=== PATIENT | female | born 1950 | race Caucasian/White ===

== ENCOUNTER → 2017-03-27 | Outpatient (CLI) | payer MEDICARE, OTHER | LOC: MHCPAIN 08:50 | DX: G89.29 Other chronic pain (principal); M47.817 Spondylosis without myelopathy or radiculopathy, lumbosacral region; M53.3 Sacrococcygeal disorders, not elsewhere classified | CPT/HCPCS: G0463 ==

== ENCOUNTER → 2017-04-25 | Outpatient (CLI) | payer MEDICARE, OTHER | LOC: MHCPAIN 10:04 | DX: M47.817 Spondylosis without myelopathy or radiculopathy, lumbosacral region (principal); Z79.01 Long term (current) use of anticoagulants | CPT/HCPCS: J1040; Q9967 ==

== ENCOUNTER → 2017-05-10 | Outpatient (CLI) | payer MEDICARE, OTHER | LOC: MHCPAIN 12:20 | DX: G89.29 Other chronic pain (principal); M47.817 Spondylosis without myelopathy or radiculopathy, lumbosacral region; M53.3 Sacrococcygeal disorders, not elsewhere classified; E66.9 Obesity, unspecified; Z79.01 Long term (current) use of anticoagulants; Z87.891 Personal history of nicotine dependence; Z79.82 Long term (current) use of aspirin | CPT/HCPCS: G0463 ==

== ENCOUNTER → 2017-08-12 | Outpatient (CLI) | payer MEDICARE, OTHER | LOC: MHCPAIN 13:28 | DX: G89.29 Other chronic pain (principal); M47.817 Spondylosis without myelopathy or radiculopathy, lumbosacral region; M53.3 Sacrococcygeal disorders, not elsewhere classified; M16.11 Unilateral primary osteoarthritis, right hip; Z87.891 Personal history of nicotine dependence | CPT/HCPCS: G0463 ==

== ENCOUNTER → 2017-09-12 | Outpatient (CLI) | payer MEDICARE, OTHER | LOC: MHCPAIN 10:28 | DX: M47.817 Spondylosis without myelopathy or radiculopathy, lumbosacral region (principal); M16.11 Unilateral primary osteoarthritis, right hip | CPT/HCPCS: J1040; Q9967 ==

== ENCOUNTER → 2017-12-09 | Outpatient (CLI) | payer MEDICARE, OTHER | LOC: MHCPAIN 12:47 | DX: G89.29 Other chronic pain (principal); M47.817 Spondylosis without myelopathy or radiculopathy, lumbosacral region; M53.3 Sacrococcygeal disorders, not elsewhere classified; M16.11 Unilateral primary osteoarthritis, right hip; Z87.891 Personal history of nicotine dependence | CPT/HCPCS: G0463 ==

== ENCOUNTER → 2017-12-19 | Outpatient (CLI) | payer MEDICARE, OTHER ==
[~2017-12-19] MED LIST: ASPIRIN 81M81 MG/TA2 PO; CARDIZEM CD 12120 MG PO; COUMADIN 6MG6 MG/TAB PO; FISH OIL 500 M1 EAC1 PO; FLEXERIL 1010 MG/TAB PO; GLUCOTROL 5M5 MG/TAB PO; IBU800 M1 PO; JANUVIA 100MG100 MG PO; LIPITOR 40MG TA40 MG PO; MAGNESIUM CITR100 MG PO; MAXZIDE 50 MG-71 TAB PO; PERCOCET 325 MG1 TAB PO; SYNTHROID0.075 MG/T PO; ZESTRIL2.5 MG PO; ZYLOPRIM 100MG100 MG PO
== END ==
LOC: MHCPAIN 10:06
DX: M47.817 Spondylosis without myelopathy or radiculopathy, lumbosacral region (principal); M43.16 Spondylolisthesis, lumbar region

== ENCOUNTER 2017-12-30 06:56 | Day surgery (SDC) | payer MEDICARE, OTHER ==
[~2017-12-30] VITALS: Ht 170.2 cm; Wt 106.4 kg
[2017-12-30] MEDS ORDERED: ZYLOPRIM 100MG100 MG PO (07:23)
[2017-12-30] MEDS ORDERED: ASPIRIN 81M81 MG/TA2 PO (07:24)
[2017-12-30] MEDS ORDERED: LIPITOR 40MG TA40 MG PO (07:24)
[2017-12-30] MEDS ORDERED: FLEXERIL 1010 MG/TAB PO (07:25)
[2017-12-30] MEDS ORDERED: COUMADIN 6MG6 MG/TAB PO (07:25)
[2017-12-30] MEDS ORDERED: CARDIZEM CD 12120 MG PO (07:26)
[2017-12-30] MEDS ORDERED: FISH OIL 500 M1 EAC1 PO (07:26)
[2017-12-30] MEDS ORDERED: GLUCOTROL 5M5 MG/TAB PO (07:26)
[2017-12-30] MEDS ORDERED: JANUVIA 100MG100 MG PO (07:27)
[2017-12-30] MEDS ORDERED: SYNTHROID0.075 MG/T PO (07:27)
[2017-12-30] MEDS ORDERED: IBU800 M1 PO (07:27)
[2017-12-30] MEDS ORDERED: MAGNESIUM CITR100 MG PO (07:28)
[2017-12-30] MEDS ORDERED: ZESTRIL2.5 MG PO (07:28)
[2017-12-30] MEDS ORDERED: PERCOCET 325 MG1 TAB PO (07:29)
[2017-12-30] MEDS ORDERED: MAXZIDE 50 MG-71 TAB PO (07:29)
[2017-12-30 07:48] VITALS: BP 124/88; PULSE 92; TEMP 98.1
[2017-12-30 08:50] VITALS: BP 99/65; PULSE 95; TEMP 98
[2017-12-30 09:05] VITALS: BP 112/68; PULSE 96
[2017-12-30 09:20] VITALS: BP 120/88; PULSE 93
[2017-12-30 09:35] VITALS: BP 143/95; PULSE 85
== END 2017-12-30 09:55 | disposition home or self-care (01) ==
LOC: SDCO 06:56
DX: K22.70 Barrett's esophagus without dysplasia (principal); K20.9 Esophagitis, unspecified; K29.30 Chronic superficial gastritis without bleeding; R19.7 Diarrhea, unspecified; Z80.0 Family history of malignant neoplasm of digestive organs; Z79.01 Long term (current) use of anticoagulants; Z79.84 Long term (current) use of oral hypoglycemic drugs; I11.0 Hypertensive heart disease with heart failure; I50.9 Heart failure, unspecified; I48.91 Unspecified atrial fibrillation; E11.9 Type 2 diabetes mellitus without complications; E03.9 Hypothyroidism, unspecified; Z87.442 Personal history of urinary calculi; E78.00 Pure hypercholesterolemia, unspecified; J44.9 Chronic obstructive pulmonary disease, unspecified; Z99.81 Dependence on supplemental oxygen; G89.29 Other chronic pain; M54.9 Dorsalgia, unspecified; G47.33 Obstructive sleep apnea (adult) (pediatric); M10.9 Gout, unspecified
CPT/HCPCS: OP; J2405; J2704; J7030

== ENCOUNTER → 2018-01-23 | Outpatient (CLI) | payer MEDICARE, OTHER | LOC: MHCPAIN 13:47 | DX: M47.817 Spondylosis without myelopathy or radiculopathy, lumbosacral region (principal); M43.16 Spondylolisthesis, lumbar region | CPT/HCPCS: J2250; J2405; J3010 ==

== ENCOUNTER → 2018-02-19 | Outpatient (CLI) | payer MEDICARE, OTHER | LOC: MHCPAIN 08:58 | DX: M47.817 Spondylosis without myelopathy or radiculopathy, lumbosacral region (principal); M43.16 Spondylolisthesis, lumbar region; M46.96 Unspecified inflammatory spondylopathy, lumbar region | CPT/HCPCS: J2250; J3010 ==

== ENCOUNTER → 2018-03-11 | Outpatient (CLI) | payer MEDICARE, OTHER | LOC: MHCPAIN 10:10 | DX: G89.29 Other chronic pain (principal); M47.817 Spondylosis without myelopathy or radiculopathy, lumbosacral region; M54.16 Radiculopathy, lumbar region; M53.3 Sacrococcygeal disorders, not elsewhere classified; M16.0 Bilateral primary osteoarthritis of hip | CPT/HCPCS: G0463 ==

== ENCOUNTER → 2018-03-17 | Outpatient (CLI) | payer MEDICARE, OTHER | LOC: MHCPAIN 12:43 | DX: M16.11 Unilateral primary osteoarthritis, right hip (principal) | CPT/HCPCS: J1040; Q9967 ==

== ENCOUNTER → 2018-06-16 | Outpatient (CLI) | payer MEDICARE, OTHER | LOC: MHCPAIN 10:25 | DX: G89.29 Other chronic pain (principal); M47.817 Spondylosis without myelopathy or radiculopathy, lumbosacral region; M54.16 Radiculopathy, lumbar region; M53.3 Sacrococcygeal disorders, not elsewhere classified | CPT/HCPCS: G0463 ==

== ENCOUNTER → 2018-07-31 | Outpatient (CLI) | payer MEDICARE, OTHER | LOC: MHCPAIN 07:47 | DX: M47.817 Spondylosis without myelopathy or radiculopathy, lumbosacral region (principal); M54.16 Radiculopathy, lumbar region ==

== ENCOUNTER → 2018-08-14 | Outpatient (CLI) | payer MEDICARE, OTHER | LOC: MHCPAIN 10:04 | DX: M47.817 Spondylosis without myelopathy or radiculopathy, lumbosacral region (principal); M54.16 Radiculopathy, lumbar region | CPT/HCPCS: J2250; J3010 ==

== ENCOUNTER → 2018-08-18 | Outpatient (CLI) | payer MEDICARE, OTHER | LOC: MHCPAIN 10:55 | DX: M47.817 Spondylosis without myelopathy or radiculopathy, lumbosacral region (principal); M54.16 Radiculopathy, lumbar region | CPT/HCPCS: J2250; J3010 ==

== ENCOUNTER 2019-01-07 07:03 | Day surgery (SDC) | payer MEDICARE, OTHER ==
[~2019-01-07] VITALS: Ht 170.3 cm; Wt 107.0 kg
[2019-01-07] VITALS (13 sets, daily range): BP systolic 111–144; BP diastolic 68–90; PULSE 84–108; TEMP 98.2–98.3
[2019-01-07 07:46] LABS: HEMATOCRIT 37.4 % (37.0-47.0); HEMOGLOBIN 11.9 g/dl (12.5-16.0); MEAN CELL VOLUME 94 fl (80.0-100.0); MEAN CORPUSCULAR HEMOGLOBIN 30 pg (27.0-31.0); MEAN CORPUSCULAR HGB CONC 32 g/dl (33.0-37.0); MEAN PLATELET VOLUME 8.8 fl (7.4-10.4); PLATELET COUNT 238 K/mm3 (130-400); RED BLOOD COUNT 3.97 M/mm3 (4.10-5.30); REDCELL DISTRIBUTION WIDTH-CV 14.5 % (11.5-14.5)
[2019-01-07 07:55] LABS: INR 1.1 (0.8-3.0)
[2019-01-07] MEDS ORDERED: COLACE 100100 MG/CAP PO (07:57)
[2019-01-07] MEDS ORDERED: MASON NATURAL1200 MG PO (07:58)
[2019-01-07] MEDS ORDERED: MAG-OX 400400 MG/TAB PO (08:04)
[2019-01-07 08:05] LABS: CALCIUM 9.4 mg/dL (8.4-10.2); CREATININE, serum 0.71 (0.52-1.25)
[2019-01-07] MEDS ORDERED: AMBIEN 10MG10 MG PO (08:07)
--- NOTE | 2019-01-07 09:34 | NUR ---
ALL MEDICATIONS GIVEN VORB WITH MD. SEE MERGE FOR MEDICATION ADMIN TIMES. SEE MERGE FOR ALL RASS ASSESSMENTS DURING AND POST PROCEDURE. POSITIVE BARBEAU'S TEST IN THE RIGHT WRIST.
--- NOTE | 2019-01-07 10:15 | NUR ---
Pt returned to EU 12 per bed s/p heart cath. Pt resting well, family at bedside.
--- NOTE | 2019-01-07 14:00 | NUR ---
Pt has ambulated, voided and daiana PO intake s n/v. R Radial compression band removed and covered with bandaid and gauze and wrapped with coban. R wrist site remains soft, C/D/I. PIV removed with catheter intact.
--- NOTE | 2019-01-07 14:25 | NUR ---
Pt discharged per w/c by nurse with .
== END 2019-01-07 16:48 | disposition home or self-care (01) ==
LOC: COL.CAR 07:03
PROVIDERS: Internal Medicine Cardiovascular Disease
DX: R94.39 Abnormal result of other cardiovascular function study (principal); I99.8 Other disorder of circulatory system; G47.33 Obstructive sleep apnea (adult) (pediatric); J44.9 Chronic obstructive pulmonary disease, unspecified; Z99.81 Dependence on supplemental oxygen; E11.9 Type 2 diabetes mellitus without complications; I10 Essential (primary) hypertension; I38 Endocarditis, valve unspecified; Z87.891 Personal history of nicotine dependence; I48.2 Chronic atrial fibrillation; Z88.5 Allergy status to narcotic agent; Z88.8 Allergy status to other drugs, medicaments and biological substances; Z79.82 Long term (current) use of aspirin; Z79.84 Long term (current) use of oral hypoglycemic drugs; E78.2 Mixed hyperlipidemia; Z79.01 Long term (current) use of anticoagulants
CPT/HCPCS: C1769; J1644; J2250; J3010; Q9967

== ENCOUNTER 2019-02-05 10:26 | Inpatient (IN) | payer MEDICARE, OTHER ==
[~2019-02-05] VITALS: Ht 170.2 cm; Wt 107.1 kg
[~2019-02-05 10:26] MED LIST changes: +AMBIEN 10MG10 MG PO; +COLACE 100100 MG/CAP PO; +MAG-OX 400400 MG/TAB PO; +MASON NATURAL1200 MG PO
[2019-03-11] VITALS (12 sets, daily range): BP systolic 96–114; BP diastolic 46–67; PULSE 75–106; TEMP 97.8–98.4
[2019-03-11] MEDS ORDERED: VENTOLIN0.09 MG IH (05:29)
[2019-03-11 06:07] LABS: PROTHROMBIN TIME 12.2 SECONDS (9.7-12.8)
[2019-03-11] MEDS ORDERED: MIRALAX PA17 GM/Dose PO (06:23)
[2019-03-11] MEDS ORDERED: PEPCID 20MG TAB20 MG PO (06:23)
--- NOTE | 2019-03-11 08:50 | NUR ---
returned to room from PACU per bed, awake and alert but sleepy, IV infusing and placed on pump at 125ml/hr, O2 on at 2L/NC which sheis on at home and O2 sat 96%, JADEN benjamin and SCDs on bilaterally, has sensation to left foot and is able to move but sensation on the right is at mid thigh and unable to move, takes sips of water and tolerates well, at bedside
--- NOTE | 2019-03-11 10:15 | NUR ---
full assessment completed, see interventions for further info
--- NOTE | 2019-03-11 10:16 | NUR ---
ambulated with very slow but steady gait out to [place] with physical therapy, then into recliner, occupational therapy now in to visit with patient, family at bedside
--- NOTE | 2019-03-11 11:00 | NUR ---
sleeping between checks, arouses easily
--- NOTE | 2019-03-11 11:10 | NUR ---
SW met with patient to discuss discharge planning. patient lives in [place] with her Peng. Patients PCP is Dr Nikole Garcia and she obtains her medications from [facility]. Patient would like to go to [place] [facility] bed at discharge and signed a choice form. Patients DPOA is on EMR. BENITO made referral to [facility] at swing bed. Will continue to follow.
--- NOTE | 2019-03-11 11:30 | NUR ---
awakens easily, has sensation to right foot and is able to now do ankle pump on the right, continues to deny needs
--- NOTE | 2019-03-11 12:03 | NUR ---
Initial visit; Patient thanked Business Account Leader for looking in on her and offering prayer and additional spiritual care. Business Account Leader will continue to look in on her while she is a patient.
--- NOTE | 2019-03-11 12:53 | NUR ---
continues to sleep and deny needs
--- NOTE | 2019-03-11 13:30 | NUR ---
awake now and beginning to feel urge to void, will notify physical therapy to assist and complete eval
--- NOTE | 2019-03-11 14:00 | NUR ---
up to bathroom and voided qs, then out and into recliner, physical therapy working with patient
--- NOTE | 2019-03-11 15:23 | NUR ---
sitting up in chair eat ing lunch, denies needs
--- NOTE | 2019-03-11 16:00 | NUR ---
remains sitting up in chair, states she is having a little pain and just doesn't feel good right now, medicated with scheduled tylenol, will call if pain doesn't get better or if increases
--- NOTE | 2019-03-11 16:45 | NUR ---
appears to be sleeping now, in chair with eyes closed, resp quiet and easy
--- NOTE | 2019-03-11 17:56 | NUR ---
assisted up to bathroom and moves well, denies needs
--- NOTE | 2019-03-11 18:55 | NUR ---
bedside shift report given to SHAHNAZ Lugo
[2019-03-12] VITALS (7 sets, daily range): BP systolic 91–117; BP diastolic 49–71; PULSE 93–111; TEMP 97.5–98.9
--- NOTE | 2019-03-12 03:28 | NUR ---
Patient has rested well throughout this night. Pain well controlled with current regimen. Ambulated to surgical nurses desk and back. Tolerated this well and noted to have steady gait. Utilizes walker and gait belt. Will continue to monitor.
--- NOTE | 2019-03-12 06:35 | NUR ---
appears to be sleeping, in bed with lights off, CPAP on, bedside shift report received from SHAHNAZ Kraus
--- NOTE | 2019-03-12 07:37 | NUR ---
awake and was up to bathroom and now resting in chair, has ordered breakfast, full assessment completed, see interventions for further info,
[2019-03-12 07:48] LABS: HEMOGLOBIN 8.7 g/dl (12.5-16.0)
[2019-03-12 07:51] LABS: INR 1.1 (0.8-3.0); PROTHROMBIN TIME 12.4 SECONDS (9.7-12.8)
--- NOTE | 2019-03-12 09:22 | NUR ---
ambulated out to [place] with physical therapy for group exercises
--- NOTE | 2019-03-12 10:00 | NUR ---
ambulated back to room after therapy, occupational therapy in to visit with patient
--- NOTE | 2019-03-12 11:23 | NUR ---
resting in chair without c/os
--- NOTE | 2019-03-12 12:55 | NUR ---
had lunch and tolerated well, medicate with roxicodone 5mg for c/os pain5/10 and in anticipation of therapy
--- NOTE | 2019-03-12 14:00 | NUR ---
ambulated back to room and remains up in chair, watching TV
--- NOTE | 2019-03-12 15:39 | NUR ---
Faxed update to [facility] bed.
--- NOTE | 2019-03-12 16:00 | NUR ---
sitting up in chair watching TV and looking at phone
--- NOTE | 2019-03-12 18:51 | NUR ---
bedside shift report given to SHAHNAZ Kraus
--- NOTE | 2019-03-13 01:50 | NUR ---
Patient resting well in bed with CPAP on. Aquacell to right hip free from drainage. Patient takes pain medication as needed and has adequate pain relief. Ambulates to bathroom with walker. Ice to right hip. Denies any needs at this time. Will continue to monitor.
[2019-03-13 02:56] VITALS: BP 123/66; PULSE 97; TEMP 98
[2019-03-13 06:50] LABS: HEMATOCRIT 28.2 % (37.0-47.0); HEMOGLOBIN 8.9 g/dl (12.5-16.0)
[2019-03-13 06:53] LABS: PROTHROMBIN TIME 12.1 SECONDS (9.7-12.8)
--- NOTE | 2019-03-13 08:00 | NUR ---
PATIENT IS A&O. VSS. RATES PAIN IN RLE AT 5-6 ON PAIN SCALE. GAVE PRN ROXICODONE, TWO TABS. RTH DRESSING IS CD&I WITH AQUACEL. TEDS TO BLE. POSITIVE PEDAL PULSES TO BLE. PATIENT EAT/DRINK/VOIDING SUFFIENT AMOUNTS. NO C/O N/V. RIGHT FORARM IV TO INT. BREAKFAST TRAY AT BEDSIDE. AM MEDS GIVEN. HEAD TO TOE ASSESSMENT WNL. NO OTHER NEEDS. CALL LIGHT IN REACH.
[2019-03-13 08:19] VITALS: BP 111/65; PULSE 98; TEMP 98
[2019-03-13 12:00] VITALS: BP 108/61; PULSE 96; TEMP 98.2
--- NOTE | 2019-03-13 13:34 | NUR ---
Patient accepted to swing bed. Doc to doc number [id number] (Dr Moses). SW gave information to nurse. Discharge orders need faxed to [phone] and patient will need to be there as early as possible and by noon at the latest.
[2019-03-13 16:25] VITALS: BP 118/59; PULSE 104; TEMP 99.2
[2019-03-13 20:38] VITALS: BP 112/64; PULSE 101; TEMP 97.7
[2019-03-13 23:37] VITALS: BP 123/71; PULSE 97; TEMP 97.9
--- NOTE | 2019-03-14 02:15 | NUR ---
Patient resting well this shift. Pain well controlled. Ambulates with 1 assist from staff. States she is very pleased with her care here. Plans to go to swing bed in the morning. Resting with eyes closed at this time.
[2019-03-14 04:45] VITALS: BP 126/66; PULSE 89; TEMP 97.8
[2019-03-14 08:07] VITALS: BP 92/58; PULSE 87; TEMP 98.2
[2019-03-14 08:43] LABS: HEMATOCRIT 29.8 % (37.0-47.0); HEMOGLOBIN 9.2 g/dl (12.5-16.0)
[2019-03-14 08:47] LABS: INR 1.2 (0.8-3.0); PROTHROMBIN TIME 13.8 SECONDS (9.7-12.8)
--- NOTE | 2019-03-14 09:30 | NUR ---
Patient is discharging today. She is doing well. She let her know she has to be in [place] by noon. He is supposed to be on his way soon. Minimal complaints of pain this am. She is waiting to do therapy to go home. No other changes at this time. Call light within reach.
[2019-03-14 09:42] VITALS: BP 112/58; PULSE 87; TEMP 98.2
--- NOTE | 2019-03-14 10:28 | NUR ---
BENITO met with patient about discharge to [facility] today 03/14 for prison, PT and OT. Patient's is on his way to pick patient up. BENITO presented IM. Patient signed and did not want a copy. BENITO faxed discharge orders.
--- NOTE | 2019-03-14 11:15 | NUR ---
Patient is discharging to swing bed. Report called to [facility]. Discharge info packet sent with patient. All belongings packed up and sent with patient. New aquacel dressing placed to right hip. No drainage to old drainage, incision is well approximated without reddness. No edema noted. Patient is being walked out via wheel chair by Sylvia MCCALL. Patient has her portable oxygen machine with her for her ride to [place].
== END 2019-03-14 11:15 | disposition swing bed (61) | DRG 470 ==
LOC: JCC 03-11 05:30
PROVIDERS: Physician Assistant; ADMIT Orthopaedic Surgery
PROC: 0SR90JZ Replacement of Right Hip Joint with Synthetic Substitute, Open Approach (ICD-10-PCS; principal; 2019-03-11 07:30)
DX: M16.11 Unilateral primary osteoarthritis, right hip (principal); I48.91 Unspecified atrial fibrillation; I50.9 Heart failure, unspecified; J44.9 Chronic obstructive pulmonary disease, unspecified; E11.9 Type 2 diabetes mellitus without complications; E78.00 Pure hypercholesterolemia, unspecified; F32.9 Major depressive disorder, single episode, unspecified; M10.9 Gout, unspecified; I11.0 Hypertensive heart disease with heart failure; G47.33 Obstructive sleep apnea (adult) (pediatric); K21.9 Gastro-esophageal reflux disease without esophagitis; G89.29 Other chronic pain; M54.9 Dorsalgia, unspecified; Z79.82 Long term (current) use of aspirin; Z99.81 Dependence on supplemental oxygen; Z79.01 Long term (current) use of anticoagulants; Z87.891 Personal history of nicotine dependence; Z90.710 Acquired absence of both cervix and uterus
CPT/HCPCS: A4216; A9284; C1713; C1776; J0690; J1100; J1885; J2250; J2405; J2704; J3010; J7030; J7120

== ENCOUNTER → 2019-06-23 | Outpatient (CLI) | payer MEDICARE, OTHER ==
[~2019-06-23] MED LIST changes: +MIRALAX PA17 GM/Dose PO; +PEPCID 20MG TAB20 MG PO; +VENTOLIN0.09 MG IH
== END ==
LOC: MHCPAIN 14:38
DX: G89.29 Other chronic pain (principal); M47.817 Spondylosis without myelopathy or radiculopathy, lumbosacral region; M53.3 Sacrococcygeal disorders, not elsewhere classified
CPT/HCPCS: G0463

== ENCOUNTER → 2019-07-09 | Outpatient (CLI) | payer MEDICARE, OTHER | LOC: MHCPAIN 09:50 | DX: M47.817 Spondylosis without myelopathy or radiculopathy, lumbosacral region (principal); M54.16 Radiculopathy, lumbar region ==

== ENCOUNTER → 2019-08-03 | Outpatient (CLI) | payer MEDICARE, OTHER | LOC: MHCPAIN 10:49 | DX: M54.5 Low back pain (principal) | CPT/HCPCS: J2250; J3010 ==

== ENCOUNTER → 2019-08-06 | Outpatient (CLI) | payer MEDICARE, OTHER | LOC: MHCPAIN 11:34 | DX: M54.5 Low back pain (principal) | CPT/HCPCS: J2250; J3010 ==

== ENCOUNTER → 2019-10-06 | Outpatient (CLI) | payer MEDICARE, OTHER | LOC: MHCPAIN 10:57 | DX: M47.817 Spondylosis without myelopathy or radiculopathy, lumbosacral region (principal); M53.3 Sacrococcygeal disorders, not elsewhere classified | CPT/HCPCS: G0463 ==

== ENCOUNTER 2021-09-08 09:55 | Day surgery (SDC) | payer MEDICARE, OTHER ==
[~2021-09-08] VITALS: Ht 170.2 cm; Wt 115.0 kg
[2021-09-08] MEDS ORDERED: COUMADIN 6MG6 MG/TAB PO (10:11)
[2021-09-08] MEDS ORDERED: Coumadin PO (10:12)
[2021-09-08] MEDS ORDERED: EPA FISH OIL1 SGL PO (10:13)
[2021-09-08] MEDS ORDERED: DYRENIUM 50MG C50 MG PO (10:16)
[2021-09-08] MEDS ORDERED: CALAN120 MG PO (10:17)
[2021-09-08] MEDS ORDERED: AMBIEN 10MG10 MG PO (10:18)
[2021-09-08 10:57] VITALS: BP 112/70; PULSE 90; TEMP 98.8
[2021-09-08 11:35] VITALS: BP 101/73; PULSE 85; TEMP 98
--- NOTE | 2021-09-08 11:35 | NUR ---
Patient arrived back into [facility]. States she feels nausea, emesis bag given. Patient is alert and awake. at bedside. Report received from SHAHNAZ Zaman. Patient requesting orange juice and delisa crackers. Patient developed nose bleed that last approximently 5 minutes with a small amount of blood. Patient states she gets these frequently due to being on continuous oxygen.
[2021-09-08 11:50] VITALS: BP 115/74; PULSE 91
--- NOTE | 2021-09-08 11:50 | NUR ---
Patient states she is doing well. Tolerated food and drink. No complaint of nausea or pain. No additonal nose bleeds. at bedside.
[2021-09-08 12:05] VITALS: BP 122/75; PULSE 95
--- NOTE | 2021-09-08 12:15 | NUR ---
in to see patient.
--- NOTE | 2021-09-08 12:20 | NUR ---
Went through discharge instructions with patient and . Questions answered. Patient and verbalized understanding to education. IV removed with no complications. Assisted patient in getting dressed and patient switched to personal portable oxygen device.
--- NOTE | 2021-09-08 12:30 | NUR ---
Patient escorted to patient entrance via wheelchair by alex Jenkins. along side. Patient left in the care of her .
== END 2021-09-08 12:30 | disposition home or self-care (01) ==
LOC: SDCO 09:55
DX: K21.9 Gastro-esophageal reflux disease without esophagitis (principal); K29.30 Chronic superficial gastritis without bleeding; R19.7 Diarrhea, unspecified; K59.00 Constipation, unspecified; D12.3 Benign neoplasm of transverse colon; I11.0 Hypertensive heart disease with heart failure; I50.9 Heart failure, unspecified; I48.91 Unspecified atrial fibrillation; E13.8 Other specified diabetes mellitus with unspecified complications; E78.5 Hyperlipidemia, unspecified; J44.9 Chronic obstructive pulmonary disease, unspecified; G47.33 Obstructive sleep apnea (adult) (pediatric); Z79.890 Hormone replacement therapy; Z79.899 Other long term (current) drug therapy; Z87.891 Personal history of nicotine dependence; Z79.84 Long term (current) use of oral hypoglycemic drugs; Z99.89 Dependence on other enabling machines and devices; Z85.3 Personal history of malignant neoplasm of breast; Z90.49 Acquired absence of other specified parts of digestive tract; Z90.710 Acquired absence of both cervix and uterus
CPT/HCPCS: J2704; J7030

== ENCOUNTER 2023-11-05 19:50 | Inpatient (IN) | payer MEDICARE, OTHER ==
[~2023-11-05] VITALS: Ht 167.6 cm; Wt 94.7 kg
[~2023-11-05 19:50] MED LIST changes: +COUMADIN4 MG PO; +Coumadin PO; +DYRENIUM 50MG C50 MG PO; +EPA FISH OIL1 SGL PO; +GLUCOPHAGE500 MG/TAB PO; +ISOPTIN SR120 MG PO; +MAXZIDE 50 MG-71 TAB; +PERCOCET 325 MG1 TA2 PO
[2023-11-05 20:20] LABS: BASO # 0.1 K/mm3 (0.0-0.2); BASO % 0.6 % (0.0-2.0); EOS # 0.4 K/mm3 (0.0-0.7); EOS % 4.8 % (0.0-4.0); GRAN # 5.1 K/mm3 (1.4-6.5); GRAN % 64.3 % (42.2-75.2); HEMATOCRIT 44.5 % (37.0-47.0); HEMOGLOBIN 14.1 g/dl (12.5-16.0); LYMPH # 1.9 K/mm3 (1.2-3.4); LYMPH % 23.4 % (20.0-51.0); MEAN CELL VOLUME 94 fl (80.0-100.0); MEAN CORPUSCULAR HEMOGLOBIN 30 pg (27-31); MEAN CORPUSCULAR HGB CONC 32 g/dl (33.0-37.0); MEAN PLATELET VOLUME 9.4 fl (7.4-10.4); MONO # 0.5 K/mm3 (0.1-0.6); MONO % 6.6 % (1.7-9.3); PLATELET COUNT 289 K/mm3 (130-400); RED BLOOD COUNT 4.73 M/mm3 (4.10-5.30); REDCELL DISTRIBUTION WIDTH-CV 15.2 % (11.5-14.5)
[2023-11-05 20:29] LABS: INR 1.7 (0.8-3.0); PROTHROMBIN TIME 18.4 SECONDS (9.7-12.8)
[2023-11-05 20:39] LABS: ALBUMIN 3.8 gm/dL (3.4-4.8); C-REACTIVE PROTEIN 0.39 mg/dL (0.00-0.50); CALCIUM 9.9 mg/dL (8.4-10.2); CREATININE, serum 0.88 mg/dL (0.57-1.11); TOTAL PROTEIN 7.5 gm/dL (6.2-8.1)
[2023-11-05 20:51] LABS: BILIRUBIN,TOTAL 0.6 mg/dL (0.2-1.2)
[2023-11-05 21:11] LABS: PH 7.5 (5.0-8.5); URINE APPEARANCE CLEAR (CLEAR/HAZY); URINE BLOOD TRACE (NEGATIVE); URINE COLOR YELLOW (YELLOW); URINE GLUCOSE NEGATIVE (NEGATIVE); URINE KETONE NEGATIVE (NEGATIVE); URINE NITRATE NEGATIVE (NEGATIVE); URINE PROTEIN(semi-quant) NEGATIVE (NEGATIVE); URINE UROBILINOGEN 0.2 E.U/dL (0.2-1.0)
[2023-11-05 21:35] LABS: COLLECTION METHOD CLEAN CATCH
[2023-11-05] MEDS ORDERED: COLACE 100100 MG/CAP PO (21:59)
[2023-11-05] MEDS ORDERED: ALL DAY ALLERGY10 M3 PO (21:59)
[2023-11-05] MEDS ORDERED: VITAMIN D 400400 IU PO (22:00)
[2023-11-05] MEDS ORDERED: CALCIUM 600-D 61 TAB PO (22:01)
[2023-11-05] MEDS ORDERED: METAMUCIL0.52 G1 PO (22:02)
[2023-11-05] MEDS ORDERED: COUMADIN 2MG2 MG/TAB PO (22:03)
[2023-11-05] MEDS ORDERED: Ondansetron 4 MG/2 ML VIAL IV PRN (23:00)
[2023-11-05] MEDS ORDERED: LR 1,000 ML IV SCH (23:00)
[2023-11-05] MEDS ORDERED: HYDROmorphone 0.5 MG/0.5 ML SYRINGE IV PRN (23:00)
[2023-11-05] MEDS ORDERED: Albuterol 0.042% Neb Soln 1.25 MG/3 ML UD IH PRN (23:15)
[2023-11-05] MEDS ORDERED: Ibuprofen 800 MG TAB PO PRN (23:15)
[2023-11-06] VITALS (15 sets, daily range): BP systolic 92–123; BP diastolic 58–85; PULSE 82–94; TEMP 97.7–98.3
--- NOTE | 2023-11-06 | NUR ---
PT ARRIVED TO ROOM 323 FROM ED & AMBULATED TO BED WITH STANDBY ASSIST. HERE FOR ABD PAIN. A&O X4. VSS ON ROOM AIR. INT TO RIGHT FOREARM PATENT. PT STATES ABD PAIN IS 3/10 & BACK PAIN IS 5/10, GIVEN PRN PER MAR. PT THEN STATED PRN DILAUDID MADE HER FEEL A BIT NAUSEOUS SO PRN ZOFRAN GIVEN PER MAR. PT ORIENTED TO ROOM & HOSPITAL POLICIES. REVIEWED POC FOR THIS SHIFT. PT DENYING FURTHER NEEDS. CALL LIGHT IN REACH
--- NOTE | 2023-11-06 00:30 | NUR ---
PT REPORTS NAUSEA & PAIN HAVE IMPROVED
[2023-11-06] MEDS ORDERED: Heparin/D5W 250 ML IV SCH (05:00)
[2023-11-06] MEDS ORDERED: Heparin 5,000 UNITS/ML 1 ML VIAL IV PRN (05:00)
[2023-11-06 06:23] LABS: BASO % 0.4 % (0.0-2.0); EOS # 0.3 K/mm3 (0.0-0.7); EOS % 4.6 % (0.0-4.0); GRAN # 5.1 K/mm3 (1.4-6.5); HEMATOCRIT 38.3 % (37.0-47.0); HEMOGLOBIN 12.4 g/dl (12.5-16.0); LYMPH # 1.4 K/mm3 (1.2-3.4); LYMPH % 18.3 % (20.0-51.0); MEAN CELL VOLUME 92 fl (80.0-100.0); MEAN CORPUSCULAR HEMOGLOBIN 30 pg (27-31); MEAN CORPUSCULAR HGB CONC 32 g/dl (33.0-37.0); MEAN PLATELET VOLUME 9.4 fl (7.4-10.4); MONO # 0.6 K/mm3 (0.1-0.6); MONO % 8.3 % (1.7-9.3); PLATELET COUNT 232 K/mm3 (130-400); RED BLOOD COUNT 4.17 M/mm3 (4.10-5.30); REDCELL DISTRIBUTION WIDTH-CV 15.4 % (11.5-14.5)
--- NOTE | 2023-11-06 06:26 | NUR ---
20 GAUGE TO RIGHT AC STARTED. HEP GTT STARTED AT 17.5MLS PER ORDER & INFUSING TO RIGHT AC. ZOSYN INFUSING TO RIGHT FOREARM. PT REPORTS PAIN CONTROLLED WITH PRN DILAUDID & DENIES N/V AT THIS TIME. CALL LIGHT IN REACH
[2023-11-06 06:36] LABS: PARTIAL THROMBOPLASTIN TIME 35.2 SECONDS (26.0-37.0)
[2023-11-06 06:41] LABS: INR 1.7 (0.8-3.0); PROTHROMBIN TIME 17.8 SECONDS (9.7-12.8)
[2023-11-06 06:42] LABS: ALBUMIN 3.2 gm/dL (3.4-4.8); BILIRUBIN,TOTAL 0.6 mg/dL (0.2-1.2); CALCIUM 9.3 mg/dL (8.4-10.2); CREATININE, serum 0.89 mg/dL (0.57-1.11); POTASSIUM 3.7 mmol/L (3.5-4.5); TOTAL PROTEIN 6.2 gm/dL (6.2-8.1)
--- NOTE | 2023-11-06 08:30 | NUR ---
pt a&ox4 resting in bed. vss, dr oates aware of low blood pressure. ok to give dilaudid per dr oates. pt reports pain a 6/10 in her back and a 2/10 in her abdomen. bowel sounds are hypoactive, pt reports last bowel movement on saturday. heparin gtt running at 17.5ml/hr. assisted pt to bathroom, gait steady. pt now in recliner. pt denies needs at this time. call light in reach.
[2023-11-06] MEDS ORDERED: CARAFATE 1GM1 G PO (08:32)
[2023-11-06] MEDS ORDERED: Loratadine 10 MG TAB PO SCH (09:00)
[2023-11-06] MEDS ORDERED: Calcium Carb/Vit D3 500 mg-200 Units TAB PO SCH (09:00)
[2023-11-06] MEDS ORDERED: Polyethylene Glycol 3350 17 GM PDS PO SCH (09:00)
[2023-11-06] MEDS ORDERED: Docusate Sodium 100 MG CAP PO SCH (09:00)
[2023-11-06] MEDS ORDERED: Verapamil SR 120 MG TAB PO SCH (09:00)
[2023-11-06] MEDS ORDERED: HYDROmorphone 0.5 MG/0.5 ML SYRINGE IV PRN (09:15)
--- NOTE | 2023-11-06 09:26 | NUR ---
Software Project Manager met with patient to discuss discharge planning. Patient lives in [place], [place] with her spouse, Peng (ph#[phone]) and sees Dr. Garcia for primary care. Patient obtains medications from [facility] and generally does not have difficulties affording medications. Patient has a CPAP and cane at home. Patient reports independence with ADLS and drives herself to medical appointments. Patient advised she has DP- designating her , Peng. Patient also has her daughter, Nancie (ph#[phone]) listed as a contact. Discharge Plan: Home
--- NOTE | 2023-11-06 10:59 | NUR ---
pt reports not feeling very well. vitals taken and are stable. assisted pt to bed to rest.
--- NOTE | 2023-11-06 13:56 | NUR ---
Initial visit; Patient in need of assistance. Lumber Straightened let her know Leila is coming and will keep her in Lumber Straightened's prayers and offered her God's blessings.
--- NOTE | 2023-11-06 14:18 | NUR ---
1215 PTT result 113.0 per protocol result is in goal range. next lab will be drawn at 1815.
--- NOTE | 2023-11-06 17:59 | NUR ---
spoke to dr robert about pt requesting some oral intake, pt advanced to clear liquid diet.
[2023-11-06] MEDS ORDERED: Allopurinol 100 MG TAB PO SCH (18:00)
--- NOTE | 2023-11-06 19:15 | NUR ---
LAB CALLED & PTT 136.6, HEP GTT DECREASED TO 16MLS PER PROTOCOL. NEXT PTT WILL BE AT 0115
--- NOTE | 2023-11-06 19:30 | NUR ---
PT A&O X4 SITTING UP IN RECLINER. VSS. PT TOLERATING CLEARS W/O N/V. PT REPORTS PAIN IS OKAY NOW SINCE PRN PAIN MED BEFORE SHIFT CHANGE. HEP GTT INFUSING TO RIGHT AC @ 16MLS/HR & LR @ 75 TO RIGHT FOREARM. PT DENYING FURTHER NEEDS. CALL LIGHTS IN REACH
[2023-11-06] MEDS ORDERED: Atorvastatin 40 MG TAB PO SCH (21:00)
[2023-11-06] MEDS ORDERED: Lisinopril 5 MG TAB PO SCH (21:00)
[2023-11-06] MEDS ORDERED: Zolpidem 5 MG TAB PO PRN (21:00)
[2023-11-06] MEDS ORDERED: Warfarin 4 MG TAB PO SCH (21:00)
[2023-11-07] VITALS (13 sets, daily range): BP systolic 93–127; BP diastolic 57–84; PULSE 82–96; TEMP 97–98
--- NOTE | 2023-11-07 02:04 | NUR ---
0115 PTT IS 128.2. HEP GTT DECREASED TO 15LMS PER PROTOCOL. NEXT PTT WILL BE AT 0750
--- NOTE | 2023-11-07 06:20 | NUR ---
pt denying the need for pain meds this morning. pt resting in bed with unlabored resp & denies further needs. call light in reach
[2023-11-07] MEDS ORDERED: metroNIDAZOLE 100 ML IV SCH (07:30)
--- NOTE | 2023-11-07 08:10 | NUR ---
pt a&ox4 resting in bed. this nurse observed [facility] nursing officer with medication administration. vss. pt tolerating clear liquid diet. reports minimal pain. heparin gtt infusing at 15ml/hr. LUE restriction in place. IV to right forearm and right ac are patent. pt reports having a small bm this morning. no needs at this time. call light in reach.
[2023-11-07 08:12] LABS: BASO % 0.5 % (0.0-2.0); EOS # 0.3 K/mm3 (0.0-0.7); EOS % 5.3 % (0.0-4.0); GRAN # 3.8 K/mm3 (1.4-6.5); GRAN % 63.6 % (42.2-75.2); HEMATOCRIT 37.4 % (37.0-47.0); HEMOGLOBIN 12.1 g/dl (12.5-16.0); LYMPH # 1.3 K/mm3 (1.2-3.4); LYMPH % 22.3 % (20.0-51.0); MEAN CELL VOLUME 92 fl (80.0-100.0); MEAN CORPUSCULAR HEMOGLOBIN 30 pg (27-31); MEAN CORPUSCULAR HGB CONC 32 g/dl (33.0-37.0); MEAN PLATELET VOLUME 9.6 fl (7.4-10.4); MONO # 0.5 K/mm3 (0.1-0.6); MONO % 7.8 % (1.7-9.3); PLATELET COUNT 224 K/mm3 (130-400); RED BLOOD COUNT 4.08 M/mm3 (4.10-5.30); REDCELL DISTRIBUTION WIDTH-CV 15.2 % (11.5-14.5)
[2023-11-07 08:22] LABS: BILIRUBIN,TOTAL 0.6 mg/dL (0.2-1.2); CALCIUM 8.9 mg/dL (8.4-10.2); CREATININE, serum 0.91 mg/dL (0.57-1.11); POTASSIUM 3.5 mmol/L (3.5-4.5); TOTAL PROTEIN 5.9 gm/dL (6.2-8.1)
--- NOTE | 2023-11-07 08:29 | NUR ---
PATIENT STATES PAIN LEVEL 2/10. NO OTHER COMPLICATIONS AT THIS TIME. PATIENT STATES NOT PASSING GAS, HAS ACTIVE BOWEL SOUNDS
--- NOTE | 2023-11-07 08:54 | NUR ---
PTT 102.3, per heparin protocol rate will remain at 15ml/hr and next lab draw will be at 1350.
[2023-11-07] MEDS ORDERED: cefTRIAXone 1 G in Water For Injection,Sterile 10 ML IV SCH (09:00)
--- NOTE | 2023-11-07 13:55 | NUR ---
Operations Team Leader spoke with RN who advised patient is independent in the room.
[2023-11-08] VITALS (10 sets, daily range): BP systolic 107–124; BP diastolic 72–80; PULSE 98–104; TEMP 98–98.8
--- NOTE | 2023-11-08 00:49 | NUR ---
NURSING SHIFT ASSESSMENT COMPLETED. THE PATIENT WAS ALERT, ORIENTED AND APPROPRIATE. THE PATIENT REPORT LOWER BACK PAIN 5/10. PRN PAIN MEDICATION PROVIDED. THE PATIENT IS UP IN THE ROOM WITH A STEADY GAIT WITHOUT ASSISTANCE. THE PLAN OF CARE AND EVENING MEDICATIONS REVIEWED. THE PATIENT VOICED UNDERSTANDING. THE PATIENT REPORTED DIARRHEA, BUT STATED THAT SHE HAS HAD A PROBLEM WITH CONSTIPATION AND DIARRHEA FOR YEARS NOW AND THAT THIS WAS NOT UNUSUAL. NO OTHER NEEDS AT THIS TIME. BED LOCKED AND IN THE LOW POSITION. BELONGINGS AND CALL LIGHT WITHIN REACH.
[2023-11-08 06:33] LABS: BASO % 0.4 % (0.0-2.0); EOS # 0.3 K/mm3 (0.0-0.7); EOS % 3.6 % (0.0-4.0); GRAN # 6.6 K/mm3 (1.4-6.5); GRAN % 78.8 % (42.2-75.2); HEMATOCRIT 38.1 % (37.0-47.0); HEMOGLOBIN 12.2 g/dl (12.5-16.0); LYMPH # 0.9 K/mm3 (1.2-3.4); LYMPH % 10.6 % (20.0-51.0); MEAN CELL VOLUME 94 fl (80.0-100.0); MEAN CORPUSCULAR HEMOGLOBIN 30 pg (27-31); MEAN CORPUSCULAR HGB CONC 32 g/dl (33.0-37.0); MEAN PLATELET VOLUME 9.5 fl (7.4-10.4); MONO # 0.5 K/mm3 (0.1-0.6); MONO % 6.1 % (1.7-9.3); PLATELET COUNT 210 K/mm3 (130-400); RED BLOOD COUNT 4.05 M/mm3 (4.10-5.30); REDCELL DISTRIBUTION WIDTH-CV 15.4 % (11.5-14.5)
[2023-11-08 06:46] LABS: CALCIUM 8.9 mg/dL (8.4-10.2); CREATININE, serum 0.78 mg/dL (0.57-1.11); MAGNESIUM 1.5 mg/dL (1.6-2.6); POTASSIUM 3.2 mmol/L (3.5-4.5)
--- NOTE | 2023-11-08 07:00 | NUR ---
Report received from SHAHNAZ Alvarez. Pt denies any needs at this time. Student nurse will assit with cares this AM. Call light within reach. Will continue with POC.
--- NOTE | 2023-11-08 08:02 | NUR ---
PATIENT AMULATED TO CHAIR. JEAN MARIETENT DRINKING WARM TEA. PATIENT STATES NO PAIN AT THE CURRENT TIME.
--- NOTE | 2023-11-08 09:30 | NUR ---
Drainage noted to left foot. Dressing changed to left foot and to ulcer on right foot.
[2023-11-08] MEDS ORDERED: *Potassium Replacement Protocol MC SCH (10:45)
[2023-11-08] MEDS ORDERED: Potassium Bicarbonate/Citrate 20 MEQ Effervescent TAB PO SCH (10:45)
[2023-11-08] MEDS ORDERED: Magnesium Sulfate 4% 50 ML IV ONE (10:45)
[2023-11-08] MEDS ORDERED: Acetaminophen 325 MG TAB PO PRN (16:15)
--- NOTE | 2023-11-08 20:08 | NUR ---
PT INDEPENDENT IN ROOM. IS ALERT AND ORIENTED X4. REPORTS ABD PAIN, DILAUDID 0.5MG IVP NOW. HAS HEP GTT TO RAC AND IVF TO RT WRIST INFUSING WITHOUT PROBLEM. PT REPORTS DIARRHEA.
--- NOTE | 2023-11-08 23:34 | NUR ---
PT REPORTS HEADACHE, MEDICATED WITH TYLENOL 650MG PO NOW.
[2023-11-09] VITALS (12 sets, daily range): BP systolic 98–127; BP diastolic 59–84; PULSE 87–120; TEMP 98–98.7
--- NOTE | 2023-11-09 03:07 | NUR ---
DILAUDID 0.5 IVP AND ZOFRAN 4MG IVP NOW.
[2023-11-09] MEDS ORDERED: metroNIDAZOLE 250 MG TAB PO SCH (08:00)
--- NOTE | 2023-11-09 08:00 | NUR ---
Pt. sitting up at bedside. Pt. is A&OX3, assessment complete. IV to rt. ac with heparin GTT infusing per orders. IV to rt. wrist with fluids infusing per orders. Pt. reports headache, giving Tylenol per orders. Pt. denies further needs. Call light within reach.
[2023-11-09 10:47] LABS: INR 1.4 (0.8-3.0); PROTHROMBIN TIME 15.4 SECONDS (9.7-12.8)
[2023-11-09] MEDS ORDERED: Sucralfate 1 G TAB PO SCH (12:48)
[2023-11-09] MEDS ORDERED: Lisinopril 5 MG TAB PO SCH (12:50)
[2023-11-09] MEDS ORDERED: Potassium Bicarbonate/Citrate 20 MEQ Effervescent TAB PO SCH (13:15)
[2023-11-09] MEDS ORDERED: Loperamide 2 MG CAP PO PRN (13:15)
--- NOTE | 2023-11-09 19:48 | NUR ---
Pt. status unchanged. Pt. denies pain. Call light within reach. Report given to SHAHNAZ Bonilla.
[2023-11-09] MEDS ORDERED: Verapamil SR 120 MG TAB PO SCH (21:00)
[2023-11-09] MEDS ORDERED: oxyCODONE/Acetaminophen 5-325 MG TAB PO PRN (22:00)
[2023-11-10] VITALS (13 sets, daily range): BP systolic 93–117; BP diastolic 55–76; PULSE 92–105; TEMP 97.8–98.6
--- NOTE | 2023-11-10 03:16 | NUR ---
Patient care, medication administration and nursing documentation occurred during a Daylight Savings Time Change.
[2023-11-10 07:48] LABS: INR 1.4 (0.8-3.0); PROTHROMBIN TIME 15.1 SECONDS (9.7-12.8)
[2023-11-10] MEDS ORDERED: Potassium Bicarbonate/Citrate 20 MEQ Effervescent TAB PO SCH (08:00)
[2023-11-10 08:05] LABS: PARTIAL THROMBOPLASTIN TIME 126.7 SECONDS (26.0-37.0)
--- NOTE | 2023-11-10 08:30 | NUR ---
PATIENT SITTING UP IN RECLINER UPON ENTERING ROOM. MORNING MEDICATIONS ADMINISTERED. SHIFT ASSESSMENT COMPLETED. HEPARIN GTT AND IVF INFUSING. PATIENT REPORTS BACK PAIN, BUT STATES IT FEELS IMPROVED SINCE RECEIVING MEDICATION THIS MORNING. CALL LIGHT WITHIN REACH. WILL CONTINUE TO MONITOR.
[2023-11-10] MEDS ORDERED: Levalbuterol Neb Soln 0.63 MG/3 ML UD IH SCH (10:45)
[2023-11-10] MEDS ORDERED: Benzonatate 100 MG CAP PO SCH (14:00)
--- NOTE | 2023-11-10 17:33 | NUR ---
PATIENT NOTIFIED THIS RN THAT SHE IS SUDDENLY NAUSEOUS AND FEELS LIKE SHE DID WHEN SHE FIRST CAME IN. PATIENT ATE A GENERAL DIET FOR LUNCH AND BELIEVES THIS IS WHY HER STOMACH IS UPSET. THIS RN REDUCED DIET BACK TO FULL LIQUID AND GAVE ZOFRAN. WILL CONTINUE TO MONITOR.
--- NOTE | 2023-11-10 20:30 | NUR ---
Initial shift assessment done, denies pain/nausea at this time,but states just still doesnt feel good, productive cough white sputum- getting tessalon pearls for cough,, on heparin drip ,will decrease at this time per protocol to 1300 units/hr, 13 cc/hr, next PTT at 0230. States hopes she sleeps good tonight-- Up to bathroom, steady on feet.
[2023-11-11] VITALS (11 sets, daily range): BP systolic 94–119; BP diastolic 59–77; PULSE 89–97; TEMP 97.9–98.7
[2023-11-11 03:14] LABS: INR 1.7 (0.8-3.0)
[2023-11-11 03:29] LABS: PARTIAL THROMBOPLASTIN TIME 127.5 SECONDS (26.0-37.0)
--- NOTE | 2023-11-11 05:45 | NUR ---
Has been sleeping good for the past couple hours, no changes. Heparin drip infusing at 1200units/hr [12 cc/hr] Next PTT draw at 0830.
[2023-11-11 09:51] LABS: CALCIUM 8.5 mg/dL (8.4-10.2); CREATININE, serum 0.82 mg/dL (0.57-1.11); POTASSIUM 3.6 mmol/L (3.5-4.5)
--- NOTE | 2023-11-11 10:02 | NUR ---
PTT at goal- no change in Heparin gtt per protocol.
--- NOTE | 2023-11-11 12:25 | NUR ---
Assessment completed this morning. Pt A/O x4 and very pleasant. Percocet administered for c/o abdominal pain. Pt reports pain decreased from 7/10 to 2/10 on pain scale. Denies nausea. Pt has been sitting up in chair throughout the morning. Heparin infusing to RW without s/s difficulty. Next PTT due at 1600. Pt's diet advanced to low fiber- pt has ordered and waiting on her tray.
--- NOTE | 2023-11-11 15:20 | NUR ---
Kitchen Steward met with patient to present and review IM. Patient verbalized understanding and provided signature. SW placed form in chart and provided copy to patient, who advised she is hopeful to discharge tomorrow. Discharge Plan; Home
--- NOTE | 2023-11-11 15:57 | NUR ---
flat screen worker attended clinical rounding on patient and was notified patient may be medically ready for discharge tomorrow.
--- NOTE | 2023-11-11 19:15 | NUR ---
Bedside report given to SHAHNZA Carreno. Lab at bedside drawing PTT that was due at 1600.
--- NOTE | 2023-11-11 20:40 | NUR ---
Initial shift assessment done- states before bed would like pain med for abd and back pain 01/09,, also has had some loose stools/diarrhea x4 and would like some immodium ,, Up to bathroom- steady on feet, states shes paying the mendoza tonight for eating some food today- "This is how it goes". Heparin drip at 12cc/hr- did have another goal PTT so next draw in the AM.
[2023-11-12] VITALS (10 sets, daily range): BP systolic 102–137; BP diastolic 61–84; PULSE 91–115; TEMP 98–98.2
--- NOTE | 2023-11-12 05:51 | NUR ---
Quiet night, states Immodium was effective ,, was tachy with last set of vitals but was just back from bathroom, repeat vitals were good, Heparin drip remains at 12cc/hr,, repeat PTT this morning
[2023-11-12 07:46] LABS: HEMOGLOBIN 11.3 g/dl (12.5-16.0); MEAN CELL VOLUME 95 fl (80.0-100.0); MEAN CORPUSCULAR HEMOGLOBIN 30 pg (27-31); MEAN CORPUSCULAR HGB CONC 31 g/dl (33.0-37.0); MEAN PLATELET VOLUME 9.9 fl (7.4-10.4); PLATELET COUNT 175 K/mm3 (130-400); RED BLOOD COUNT 3.81 M/mm3 (4.10-5.30); REDCELL DISTRIBUTION WIDTH-CV 15.9 % (11.5-14.5)
[2023-11-12 07:51] LABS: HEMATOCRIT 36.3 % (37.0-47.0)
[2023-11-12 07:52] LABS: INR 2.3 (0.8-3.0); PROTHROMBIN TIME 24.6 SECONDS (9.7-12.8)
[2023-11-12 07:55] LABS: PARTIAL THROMBOPLASTIN TIME 98.9 SECONDS (26.0-37.0)
[2023-11-12 08:01] LABS: CALCIUM 8.2 mg/dL (8.4-10.2); CREATININE, serum 0.73 mg/dL (0.57-1.11); POTASSIUM 3.7 mmol/L (3.5-4.5)
[2023-11-12] MEDS ORDERED: FLAGYL500 MG PO (08:17)
[2023-11-12 10:16] LABS: EOSINOPHIL 8 % (0-4); LYMPHOCYTE 24 % (20.0-51.0); NEUTROPHILS 56 % (42.0-75.2)
[2023-11-12 10:17] LABS: ANISOCYTOSIS 1+; HYPOCHROMIA 2+; PLATELET ESTIMATE NORMAL (NORMAL)
--- NOTE | 2023-11-12 11:16 | NUR ---
medical social worker attended interdisciplinary clinical rounding with Dr. Flores. Patient may be medically ready for discharge today. During the conversation with Dr. Flores, patient stated if they did not determine what was wrong with her abdominal pain she was going to take all of her medications at once when she returned home. Patient would like to return home at time of discharge. BENITO met with patient privately after Dr. Flores completed his evaluation. SW mentioned patient's statement about her taking all of her medications. Patient stated that she "was not going to do anything to take my own life." SW mentioned the medications again and patient stated that she "was going to let nature take its course." Patient again stated that she would not harm herself. SW discussed discharge plan and patient would like to return home when medically ready for discharge. SW discussed home health services and patient declined these services. BENITO notes she reviewed the important message from Medicare but patient reports she completed one yesterday, SW reviewed the form was completed yesterday. BENITO updated Dr. lFores on this conversation and requested a [place] screen. Dr. Flores stated that he was going to speak with patient first to determine if she was a risk of harming herself to determine if a [place] screen is needed. Dr. Flores stated he heard patient state that she was not going to take any of her medications rather than she was going to take all of her medications at once. BENITO submitted APS report due to concerns of patient's statement: Intake ID [id number] Discharge plan: Home
[2023-11-12] MEDS ORDERED: *Potassium Replacement Protocol MC SCH (12:30)
[2023-11-12] MEDS ORDERED: Potassium Bicarbonate/Citrate 20 MEQ Effervescent TAB PO SCH (12:30)
--- NOTE | 2023-11-12 14:10 | NUR ---
patient discharge instructions given. patient denied having any questions. patient escorted out of unit by PCT.
[2023-11-12] MEDS ORDERED: Warfarin 4 MG TAB PO SCH (21:00)
== END 2023-11-12 14:00 | disposition home or self-care (01) | DRG 394 ==
LOC: COL.ER 19:50 → SURG 22:53
PROVIDERS: Internal Medicine; Nurse Practitioner; Nurse Practitioner Family; Physician Assistant; ADMIT Surgery
DX: K63.89 Other specified diseases of intestine (principal); N39.0 Urinary tract infection, site not specified; E66.9 Obesity, unspecified; G47.00 Insomnia, unspecified; K21.9 Gastro-esophageal reflux disease without esophagitis; Z66 Do not resuscitate; I11.0 Hypertensive heart disease with heart failure; J44.9 Chronic obstructive pulmonary disease, unspecified; I50.9 Heart failure, unspecified; E11.9 Type 2 diabetes mellitus without complications; M1A.9XX0 Chronic gout, unspecified, without tophus (tophi); Z96.641 Presence of right artificial hip joint; I48.91 Unspecified atrial fibrillation; E78.5 Hyperlipidemia, unspecified; I08.3 Combined rheumatic disorders of mitral, aortic and tricuspid valves; R19.7 Diarrhea, unspecified; E03.9 Hypothyroidism, unspecified; G89.29 Other chronic pain; M54.50 Low back pain, unspecified; B96.4 Proteus (mirabilis) (morganii) as the cause of diseases classified elsewhere; B95.2 Enterococcus as the cause of diseases classified elsewhere; R91.8 Other nonspecific abnormal finding of lung field; I27.20 Pulmonary hypertension, unspecified; Z85.3 Personal history of malignant neoplasm of breast; Z79.02 Long term (current) use of antithrombotics/antiplatelets; Z90.710 Acquired absence of both cervix and uterus; Z90.49 Acquired absence of other specified parts of digestive tract; Z87.442 Personal history of urinary calculi; Z88.6 Allergy status to analgesic agent; Z88.8 Allergy status to other drugs, medicaments and biological substances; Z87.891 Personal history of nicotine dependence; Z92.3 Personal history of irradiation; Z92.21 Personal history of antineoplastic chemotherapy; Z79.899 Other long term (current) drug therapy; Z79.890 Hormone replacement therapy; Z68.34 Body mass index [BMI] 34.0-34.9, adult; Z90.12 Acquired absence of left breast and nipple; Z23 Encounter for immunization
CPT/HCPCS: J0696; J1170; J1644; J1836; J2405; J2543; J3475; J7120; Q3014